=== PATIENT | female | born 1975 | race Caucasian/White ===

== ENCOUNTER 2019-06-24 12:38 | Emergency (ER) | payer BC ==
[~2019-06-24] VITALS: Ht 165.1 cm; Wt 80.3 kg
[2019-06-24 12:46] VITALS: Ht 165.1 cm; Wt 80.3 kg
[2019-06-24 13:15] LABS: BASOPHIL % 0.4 % (0-2); PLATELET COUNT 292 x10^3mcL (130-400)
[2019-06-24 13:19] LABS: RED CELL DISTRIBUTION WIDTH 14.9 % (11.5-14.5)
[2019-06-24 13:24] LABS: CALCIUM 8.9 mg/dL (8.5-10.1); CARBON DIOXIDE 24.7 mmol/L (21-32); CHLORIDE SERUM 103 mmol/L (98-107); CREATININE SERUM 0.6 mg/dL (0.6-1.0); GFR1 > 60 mL/min; GLUCOSE SERUM 100 mg/dL (74-106); POTASSIUM SERUM 3.3 mmol/L (3.5-5.1); SODIUM SERUM 138 mmol/L (136-145)
[2019-06-24 13:38] LABS: FREE T4 1.34 ng/dL (0.76-1.46)
[2019-06-24 15:06] VITALS: BP 138/80
== END 2019-06-24 15:06 | disposition home or self-care (01) ==
LOC: ED 12:38
PROVIDERS: Emergency Medicine
DX: B34.9 Viral infection, unspecified (principal); R42 Dizziness and giddiness
CPT/HCPCS: 84439; J7030